=== PATIENT | female | born 1960 | race Native Hawaiian/Other Pacific Islander ===

== ENCOUNTER 2016-10-27 11:39 | Emergency (ER) | payer OTHER ==
[~2016-10-27] VITALS: Ht 152.4 cm; Wt 61.7 kg
[2016-10-27 11:39] VITALS: BP 128/68
--- NOTE | 2016-10-27 12:16 | NUR ---
PT IS MEDICATED ORDERED. AMBULATORY W/ STEADY GAIT. D/C IN STABLE CONDITION.
== END 2016-10-27 12:19 | disposition home or self-care (01) ==
LOC: ER 11:40
DX: M25.559 Pain in unspecified hip (principal); G89.29 Other chronic pain; B19.20 Unspecified viral hepatitis C without hepatic coma; Z88.8 Allergy status to other drugs, medicaments and biological substances; Z59.0 Homelessness
CPT/HCPCS: 99283; A4606; Z7610

== ENCOUNTER 2016-11-01 20:14 | Emergency (ER) | payer OTHER ==
[~2016-11-01] VITALS: Ht 165.1 cm; Wt 61.2 kg
[2016-11-01 20:14] VITALS: BP 133/78
== END 2016-11-01 20:35 | disposition home or self-care (01) ==
LOC: ER 20:16
DX: Z76.5 Malingerer [conscious simulation] (principal); B19.20 Unspecified viral hepatitis C without hepatic coma; F10.10 Alcohol abuse, uncomplicated; Z88.8 Allergy status to other drugs, medicaments and biological substances; Z59.0 Homelessness
CPT/HCPCS: 99283; A4606; Z7610

== ENCOUNTER 2017-02-24 17:52 | Emergency (ER) | payer OTHER ==
[~2017-02-24] VITALS: Ht 165.1 cm; Wt 68.0 kg
[2017-02-24] MEDS ORDERED: LORAZEPAM INJ 2 MG/ML VIAL ONE ×2 (18:12→18:35)
[2017-02-24 18:24] LABS: BASOPHILS # (AUTO) 0.1 /CMM (0.0-0.2); BASOPHILS % (AUTO) 0.8 % (0.0-2.0); EOSINOPHILS # (AUTO) 0.4 /CMM (0.0-0.7); EOSINOPHILS % (AUTO) 4.1 % (0.0-6.0); HEMATOCRIT 32 % (33-45); LYMPHOCYTES # (AUTO) 0.8 /CMM (0.8-4.8); LYMPHOCYTES % (AUTO) 8.9 % (20.0-44.0); MEAN CORPUSCULAR HEMOGLOBIN 22 PG (26.0-33.0); MEAN CORPUSCULAR HGB CONC 32 g/dl (31.0-36.0); MEAN CORPUSCULAR VOLUME 70 fL (82-100); MONOCYTES # (AUTO) 0.4 /CMM (0.1-1.30); MONOCYTES % (AUTO) 5.2 % (2.0-12.0); NEUTROPHILS # (AUTO) 6.9 /CMM (1.8-8.9); PLATELET COUNT (AUTO) 423 /CMM (150-450); RDW COEFFICIENT OF VARIATION 16.2 (11.5-15.0); RED BLOOD CELL COUNT(AUTO) 4.53 MIL/uL (4.0-5.2); WHITE BLOOD COUNT (AUTO) 8.6 K/uL (4.3-11.0)
[2017-02-24] MEDS ORDERED: diphenhydrAMINE HCL 50 MG/ML VIAL ONE (18:27)
[2017-02-24] MEDS ORDERED: diphenhydrAMINE HCL 50 MG/ML VIAL IV ONE (18:30)
[2017-02-24] MEDS ORDERED: LORAZEPAM INJ 2 MG/ML VIAL IVP ONE (18:30)
[2017-02-24] MEDS ORDERED: LORAZEPAM INJ 2 MG/ML VIAL IV ONE (18:30)
[2017-02-24 18:33] LABS: CALCIUM, SERUM 9.2 mg/dL (8.5-10.1); CARBON DIOXIDE 31 mmol/L (21-32); CHLORIDE 99 mmol/L (98-107); CREATININE 0.5 mg/dL (0.6-1.3); GLUCOSE 101 mg/dL (74-106); POTASSIUM 3.7 mmol/L (3.5-5.1); SODIUM SERUM 138 mmol/L (136-145); UREA NITROGEN, BLOOD 20 mg/dL (7-18)
--- NOTE | 2017-02-24 18:38 | NUR ---
second dose of Ativan given; the patient remains agitated- Zuly is aware
[2017-02-24 18:39] LABS: ALANINE AMINOTRANSFERASE 19 U/L (12-78); ALBUMIN 3.2 g/dL (3.4-5.0); ALCOHOL, BLOOD < 3 mg/dL (0-0); ALKALINE PHOSPHATASE 113 U/L (46-116); ASPARTATE AMINOTRANSFERASE 24 U/L (15-37); BILIRUBIN,DIRECT 0.1 mg/dL (0.0-0.2); BILIRUBIN,TOTAL 0.3 mg/dL (0.2-1.0); TOTAL PROTEIN, SERUM 8.3 g/dL (6.4-8.2)
[2017-02-24 18:40] LABS: ACETAMINOPHEN < 2 ug/ml (10-30); SALICYLATE 1.6 mg/dL (2.8-20.0)
--- NOTE | 2017-02-24 18:42 | NUR ---
placed on front desk monitor - 99% to 100% on room air
[2017-02-24] MEDS ORDERED: IV NS 0.9% 1,000 ML BAG IV ONE (19:00)
[2017-02-24] MEDS ORDERED: MIDAZOLAM HCL 2 MG/2ML VIAL IV ONE (19:00)
--- NOTE | 2017-02-24 19:00 | NUR ---
assumed care: pt in bed confused, combative, [address] for pt safety, breathing even/unlabored, distal sensation intact, cap refil instant, NAD noted, IV to L wrist intact, no phlebitis, waiting on labs/CT results.
[2017-02-24] MEDS ORDERED: MIDAZOLAM HCL 5 MG/5ML VIAL ONE (19:01)
--- NOTE | 2017-02-24 19:04 | NUR ---
VERBAL ORDER FOR VERSED TAKEN; HOWEVER, THE CT OF THE HEAD WAS DONE DESPITE BEING AGITATED- NO LONGER NEEDED - VERSED - WASTED - WITNESSED BY HUMPHREY GOMES
[2017-02-24 19:36] LABS: APPEARANCE,URINE Slightly Cloudy (CLEAR); BILIRUBIN,URINE Negative (NEGATIVE); BLOOD, URINE Negative Ery/uL (NEGATIVE); COLOR,URINE Light yellow (YELLOW); KETONES,URINE Negative (NEGATIVE); LEUKOCYTE ESTERASE ,URINE Negative (NEGATIVE); NITRITE, URINE Negative (NEGATIVE); PROTEIN,URINE 30 mg/dl (NEGATIVE); UGLUCOSE Negative (NEGATIVE); UROBILINOGEN,URINE 0.2 EU/dL (0.2)
[2017-02-24 19:47] LABS: BACTERIA,URINE Moderate /HPF (None Seen); RBC,URINE 0-2 /HPF (0-2); SQUAMOUS EPITHELIAL CELL,UR Many /HPF (None Seen); WBC,URINE 0-2 /HPF (0-3)
[2017-02-24] MEDS ORDERED: MIDAZOLAM 50 MG/10 ML VIAL ONE (20:43)
--- NOTE | 2017-02-24 21:00 | NUR ---
PT BREATHING LOUDLY/EVEN, MARY/ROM INTACT, CAP REFIL INSTANT, NAD NOTED, IV SITE INTACT, BRIGHT WITH 400CC OUTPUT YELLOW URINE, NAD NOTED, REASSESS NEED FOR RESTRAINT TO BE D/C
--- NOTE | 2017-02-24 22:55 | NUR ---
PT SLEEPING BREATHING LOUDLY, EVEN, NSY ON CARDIAC MONIOTR, NAD NOTED, CONTINUE TO MONITOR.
--- NOTE | 2017-02-25 00:23 | NUR ---
PT SLEEPING BREATHING LOUDLY, EVEN/UNLABORED, ELEVATED BP 161/110 ER MD CINTRON MADE AWARE, WILL CONTINUE TO MONITOR
[2017-02-25] MEDS ORDERED: LORAZEPAM INJ 2 MG/ML VIAL ONE ×2 (00:58→02:42)
[2017-02-25] MEDS ORDERED: LORAZEPAM INJ 2 MG/ML VIAL IV ONE (01:00)
--- NOTE | 2017-02-25 04:01 | NUR ---
PT SLEEPING, BREATHING LOUDLY/EVEN, ARROUSABLE TO VOICE, BABLES/MOANS INCOHERENTLY, BIOFUELS PRODUCTION MANAGER IN PLACE NSR, NAD NOTED, WILL CONTINUE TO MONITOR
[2017-02-25 07:30] VITALS: BP 142/88
--- NOTE | 2017-02-25 07:47 | NUR ---
AMBULATING IN THE HALLWAY WITH WALKER,STEADY GAIT. VERBALIZED UNDERSTANDING OF ACI.
== END 2017-02-25 08:17 | disposition home or self-care (01) ==
LOC: ER 17:57
DX: F19.129 Other psychoactive substance abuse with intoxication, unspecified (principal); R56.9 Unspecified convulsions; F10.10 Alcohol abuse, uncomplicated; B19.20 Unspecified viral hepatitis C without hepatic coma; Z59.0 Homelessness; Z88.8 Allergy status to other drugs, medicaments and biological substances
CPT/HCPCS: 36415; 70450; 80048; 80076; 80305; 80329; 81001; 82140; 85025; 87086; 96361; 96374; 96375; 96376; 99285; A4606; G0480 ×2; J1200; J2060 ×4; J2250; Z7610; 81000-TC

== ENCOUNTER 2017-04-20 07:30 | Inpatient (IN) | payer MEDICAID, OTHER ==
[~2017-04-20] VITALS: Ht 156.2 cm; Wt 58.7 kg
[2017-04-20 08:00] VITALS: BP 129/63
--- NOTE | 2017-04-20 09:15 | NUR ---
RN NOTES PT BROUGHT TO FLOOR BY FASHION DIRECTOR PART[employer] PLAN SALES FROM [place]. PT IS SLEEPING, BUT ABLE TO BE AROUSED TO NAME AND TOUCH. VITAL SIGNS ARE WNL AND TEL READING SHOWS SR. PT ON RA, RESPIRATIONS ARE EVEN AND UNLABORED. IV ON LFA, LAC, AND ALLISON INTACT AND SL. BRIGHT CATHETER IS INTACT AND DRAINING CLEAR YELLOW URINE. SAFETY MEASURES ARE IN PLACE, CALL LIGHT IS IN REACH. WILL CONTINUE TO MONITOR.
[2017-04-20 09:20] VITALS: BP 116/78
[2017-04-20] MEDS ORDERED: IV NS 0.9% 1,000 ML IV PRN (10:45)
[2017-04-20] MEDS ORDERED: PANTOPRAZOLE 40 MG VIAL IV SCH (11:00)
[2017-04-20] MEDS ORDERED: MAG HYDROX/AL HYDROX/SIMETH 30 ML UDC PO PRN (11:00)
[2017-04-20] MEDS ORDERED: ACETAMINOPHEN 325 MG TABLET PO PRN (11:00)
[2017-04-20] MEDS ORDERED: Z GUARD REMEDY 2 OZ OINT TP PRN (11:00)
[2017-04-20] MEDS ORDERED: ONDANSETRON HCL/PF 4 MG/2 ML VIAL IVP PRN (11:00)
[2017-04-20] MEDS ORDERED: ZOLPIDEM TARTRATE 5 MG TABLET PO PRN (11:00)
[2017-04-20] MEDS ORDERED: MAGNESIUM HYDROXIDE 30 ML UDC PO PRN (11:00)
[2017-04-20 13:11] LABS: HEMATOCRIT 26 % (33-45); HEMOGLOBIN 8.1 g/dL (11.5-14.8); MEAN CORPUSCULAR HEMOGLOBIN 21 PG (26.0-33.0); MEAN CORPUSCULAR HGB CONC 31 g/dl (31.0-36.0); MEAN CORPUSCULAR VOLUME 68 fL (82-100); PLATELET COUNT (AUTO) 211 /CMM (150-450); RDW COEFFICIENT OF VARIATION 19.5 (11.5-15.0); RED BLOOD CELL COUNT(AUTO) 3.89 MIL/uL (4.0-5.2); WHITE BLOOD COUNT (AUTO) 10.4 K/uL (4.3-11.0)
[2017-04-20 13:29] LABS: ALANINE AMINOTRANSFERASE 21 U/L (12-78); ALBUMIN 2.9 g/dL (3.4-5.0); ALKALINE PHOSPHATASE 91 U/L (46-116); ASPARTATE AMINOTRANSFERASE 22 U/L (15-37); BILIRUBIN,TOTAL 0.3 mg/dL (0.2-1.0); CALCIUM, SERUM 8.6 mg/dL (8.5-10.1); CARBON DIOXIDE 24 mmol/L (21-32); CHLORIDE 106 mmol/L (98-107); GLUCOSE 68 mg/dL (74-106); MAGNESIUM 1.6 mg/dL (1.8-2.4); PHOSPHORUS 3.2 mg/dL (2.5-4.9); POTASSIUM 4.4 mmol/L (3.5-5.1); SODIUM SERUM 139 mmol/L (136-145); TOTAL PROTEIN, SERUM 7.1 g/dL (6.4-8.2); UREA NITROGEN, BLOOD 32 mg/dL (7-18)
[2017-04-20 13:32] LABS: TROPONIN I < 0.017 ng/mL (0.00-0.056)
[2017-04-20 13:35] LABS: BAND % (MANUAL) 2 % (0.0-5.0); EOSINOPHILS % (MANUAL) 1 % (0-4); LYMPHOCYTES % (MANUAL) 9 % (16-48); MONOCYTES % (MANUAL) 2 % (0-11.0); NEUTROPHILS % (MANUAL) 86 (42-76)
[2017-04-20 13:38] LABS: THYROID STIMULATING HORMONE 1.078 uIU/mL (0.358-3.74)
--- NOTE | 2017-04-20 13:52 | NUR ---
RN NOTES PT LEFT AGAINST MEDICAL ADVICE. PT WAS TOLD TO IT IS BETTER FOR HER TO STAY TO GET ANTIBIOTICS AND FLUIDS BUT STATED SHE COULD GET THE ANTIBIOTICS FROM HER [facility] AND WANTS TO GO BACK. IVS AND ID BAND WERE REMOVED AND AMA FORM WAS SIGNED.
[2017-04-20] MEDS ORDERED: FEE PK DOSING 1 MIN EA MC ONE (14:21)
[2017-04-20] MEDS ORDERED: VANCOMYCIN 1 GM in IV NS 0.9% 250 ML IV SCH (14:30)
--- NOTE | 2017-04-20 15:47 | NUR ---
ELISEO Leon called TIFF in regards to receiving a bus token for the patient. TIFF provided bus token for the pt.
[2017-04-20 16:00] VITALS: BP 134/61
[2017-04-20] MEDS ORDERED: CEFEPIME 2 GM in IV D5W 100 ML IV SCH (16:00)
== END 2017-04-20 14:00 | disposition left against medical advice (07) | DRG 812 ==
LOC: TELE 09:08
PROVIDERS: ADMIT Internal Medicine; ATTEND Internal Medicine
DX: T42.4X1A Poisoning by benzodiazepines, accidental (unintentional), initial encounter (principal); J69.0 Pneumonitis due to inhalation of food and vomit; G92 Toxic encephalopathy; N17.9 Acute kidney failure, unspecified; F19.10 Other psychoactive substance abuse, uncomplicated; Y92.009 Unspecified place in unspecified non-institutional (private) residence as the place of occurrence of the external cause; K74.60 Unspecified cirrhosis of liver; N18.9 Chronic kidney disease, unspecified; R56.9 Unspecified convulsions
CPT/HCPCS: 36415; 80053-TC; 83735-TC; 84100-TC; 84443-TC; 84484-TC; 85025-TC; 87081-TC; C9113; J0692; J3370; J7030; J7050; J7060; Z7610

== ENCOUNTER 2017-05-08 14:37 | Emergency (ER) | payer MEDICAID, OTHER ==
[~2017-05-08] VITALS: Ht 162.6 cm; Wt 65.8 kg
[2017-05-08 14:37] VITALS: BP 138/68
== END 2017-05-08 22:32 | disposition home or self-care (01) ==
LOC: ER 14:38
DX: T40.601A Poisoning by unspecified narcotics, accidental (unintentional), initial encounter (principal); F11.10 Opioid abuse, uncomplicated; F19.129 Other psychoactive substance abuse with intoxication, unspecified; I10 Essential (primary) hypertension; F10.10 Alcohol abuse, uncomplicated; R56.9 Unspecified convulsions; Z59.0 Homelessness; Z86.19 Personal history of other infectious and parasitic diseases; Z88.8 Allergy status to other drugs, medicaments and biological substances; Y92.89 Other specified places as the place of occurrence of the external cause
CPT/HCPCS: 36415; 70450-TC; 82962-TC; A4606; G0480; Z7610

== ENCOUNTER 2017-11-01 12:04 | Inpatient (IN) | payer MEDICAID, OTHER ==
[~2017-11-01] VITALS: Ht 162.6 cm; Wt 65.8 kg
--- NOTE | 2017-11-01 12:30 | NUR ---
BROUGHT IN FOR PSYCH EVAL FOR GD BY [facility] STAFF. PATIENT TOOK METHADONE AND IS LETHARGIC. HYPOTENSIVE AT THIS TIME. BREATHING EVEN AND UNLABORED. NO SOB, NAD, VITALS STABLE. SAFETY AND COMFORT MEASURES IN PLACE. AWAITING MD ORDERS.
[2017-11-01] MEDS ORDERED: IV NS 0.9% 1,000 ML BAG IV ONE (13:00)
[2017-11-01] MEDS ORDERED: PANTOPRAZOLE 40 MG VIAL ONE (13:15)
--- NOTE | 2017-11-01 13:20 | NUR ---
NEW IV STARTED ON LEFT WRIST, 20G. MEDICATED PATIENT PER MD ORDERS.
[2017-11-01 13:25] LABS: BASOPHILS % (AUTO) 1.4 % (0.0-2.0); EOSINOPHILS % (AUTO) 2.6 % (0.0-6.0); HEMATOCRIT 33 % (33-45); HEMOGLOBIN 10.3 g/dL (11.5-14.8); LYMPHOCYTES % (AUTO) 15.2 % (20.0-44.0); MEAN CORPUSCULAR HEMOGLOBIN 21 PG (26.0-33.0); MEAN CORPUSCULAR HGB CONC 31 g/dl (31.0-36.0); MEAN CORPUSCULAR VOLUME 69 fL (82-100); MONOCYTES % (AUTO) 4.2 % (2.0-12.0); NEUTROPHILS % (AUTO) 76.6 % (43.0-81.0); RDW COEFFICIENT OF VARIATION 14.3 (11.5-15.0); RED BLOOD CELL COUNT(AUTO) 4.81 MIL/uL (4.0-5.2)
[2017-11-01 13:27] LABS: CALCIUM, SERUM 8.5 mg/dL (8.5-10.1); CARBON DIOXIDE 29 mmol/L (21-32); CHLORIDE 95 mmol/L (98-107); CREATININE 3.4 mg/dL (0.6-1.3); GLUCOSE 145 mg/dL (74-106); POTASSIUM 3.6 mmol/L (3.5-5.1); SODIUM SERUM 132 mmol/L (136-145); UREA NITROGEN, BLOOD 39 mg/dL (7-18)
[2017-11-01] MEDS ORDERED: PANTOPRAZOLE 40 MG VIAL IV ONE (13:30)
[2017-11-01 13:33] LABS: ACETAMINOPHEN 1 ug/ml (10-30); ALANINE AMINOTRANSFERASE 23 U/L (12-78); ALBUMIN 3.6 g/dL (3.4-5.0); ALCOHOL, BLOOD < 3 mg/dL (0-0); ALKALINE PHOSPHATASE 115 U/L (46-116); ASPARTATE AMINOTRANSFERASE 29 U/L (15-37); BILIRUBIN,DIRECT 0.1 mg/dL (0.0-0.2); BILIRUBIN,TOTAL 0.2 mg/dL (0.2-1.0); SALICYLATE 2.1 mg/dL (2.8-20.0); TOTAL PROTEIN, SERUM 8.2 g/dL (6.4-8.2)
[2017-11-01 13:36] LABS: APPEARANCE,URINE Clear (CLEAR); BILIRUBIN,URINE SMALL (NEGATIVE); BLOOD, URINE Negative Ery/uL (NEGATIVE); COLOR,URINE Yellow (YELLOW); KETONES,URINE Trace (NEGATIVE); LEUKOCYTE ESTERASE ,URINE Negative (NEGATIVE); NITRITE, URINE Negative (NEGATIVE); PH,URINE 5.5 (5.0-8.0); PROTEIN,URINE 100 mg/dl (NEGATIVE); UGLUCOSE Negative (NEGATIVE); UROBILINOGEN,URINE 0.2 EU/dL (0.2)
[2017-11-01 13:37] LABS: PLATELET COUNT (AUTO) 193 /CMM (150-450); WHITE BLOOD COUNT (AUTO) 6.6 K/uL (4.3-11.0)
[2017-11-01 13:41] LABS: BACTERIA,URINE Moderate /HPF (None Seen); RBC,URINE 0-2 /HPF (0-2); SQUAMOUS EPITHELIAL CELL,UR Moderate /HPF (None Seen)
--- NOTE | 2017-11-01 13:41 | NUR ---
JABIER FAMILY SUPERVISOR WET POUR: JULIO: [phone] / IMELDA [phone]
--- NOTE | 2017-11-01 13:51 | NUR ---
PANEL ON-CALL PAGED
[2017-11-01] MEDS ORDERED: IV NS 0.9% 500 ML BAG IV ONE (14:00)
[2017-11-01] MEDS ORDERED: CLON0.2T PO (14:03)
--- NOTE | 2017-11-01 14:04 | NUR ---
CALLED NURSING POWER ENGINEER AND REQUESTED A TELE BED FOR THIS PT.
[2017-11-01] MEDS ORDERED: LISI-603 PO (14:07)
[2017-11-01] MEDS ORDERED: BUSP30TA2 PO (14:07)
[2017-11-01] MEDS ORDERED: HYDR12.5 PO (14:07)
[2017-11-01] MEDS ORDERED: GABA600T2 PO (14:07)
[2017-11-01] MEDS ORDERED: CITA20TA16 PO (14:07)
[2017-11-01] MEDS ORDERED: AMLO10TA6 PO (14:07)
--- NOTE | 2017-11-01 14:55 | NUR ---
PT IS ASSIGNED TO [facility]#: [id number], DX: ACUTE RENAL FAILURE/AMS, AND ACCEPTING MD: DR MORRIS
--- NOTE | 2017-11-01 14:59 | NUR ---
report given to camron tomlinson for alin upon admission.
[2017-11-01 15:16] LABS: OCCULT BLOOD STOOL NEGATIVE (NEGATIVE)
[2017-11-01] MEDS ORDERED: IV NS 0.9% 1,000 ML IV PRN (15:19)
[2017-11-01] MEDS ORDERED: ACETAMINOPHEN 325 MG TABLET PO PRN (15:30)
[2017-11-01] MEDS ORDERED: MAGNESIUM HYDROXIDE 30 ML UDC PO PRN (15:30)
[2017-11-01] MEDS ORDERED: ZOLPIDEM TARTRATE 5 MG TABLET PO PRN (15:30)
[2017-11-01] MEDS ORDERED: HYDROCODONE/APAP 5/325MG 1 EACH TABLET PO PRN ×2 (15:30→21:30)
[2017-11-01] MEDS ORDERED: Z GUARD REMEDY 2 OZ OINT TP PRN (15:30)
[2017-11-01] MEDS ORDERED: MAG HYDROX/AL HYDROX/SIMETH 30 ML UDC PO PRN (15:30)
[2017-11-01] MEDS ORDERED: ONDANSETRON HCL/PF 4 MG/2 ML VIAL IVP PRN (15:30)
--- NOTE | 2017-11-01 15:53 | NUR ---
patient transported to [facility] via acls protocol. rncamron to provide alin.
--- NOTE | 2017-11-01 16:25 | NUR ---
MS RN RECEIVED A NEW ADMISSION FROM ER. 57 YEAR OLD FEMALE AWAKE,ALERT,ORIENTED X2, CONFUSED AT TIMES, NO DISTRESS NOTED, WILL MONITOR PATIENT'S CONDITION
--- NOTE | 2017-11-01 17:00 | NUR ---
ms rn received a new admission from er, a 57 year old female, came in w/ dx of altered mental status, acute renal failure, very lethargic and out of it. left wrist g20 noted , ledt lower foot wound laceration, bilateral lungs congested w/ occasional coughing noted, denies painat this time, will monitor patient's condition.
--- NOTE | 2017-11-01 18:00 | NUR ---
ms rn patient awake already, getting out of bed, bed alarm on,needs sitter, charge nurse aware, patient transferred to room 308 bde 1 for better monitoring, will check frequently.
--- NOTE | 2017-11-01 19:00 | NUR ---
RN NOTES PT AWAKE SITTING IN BED BUT DOZING OFF, SLURRED SPEECH. IV ACCESS ON THE LEFT WRIST 20G PATENT AND INTACT. CARDIAC MONITORING NOT ATTACHED, PT REFUSED AT THIS TIME. PATIENT IN ROOM AIR, NO SIGNS OF DISTRESS, NO LABORED BREATHING. BILATERAL KNEE SCAR, RIGHT LATERAL LEG SCAR, LEFT LEG DRY LACERATION, PIC TAKEN AND IN THE CHART. SAFETY MEASURES IN PLACED, CALL LIGHT WITHIN REACH. WILL CONTINUE TO MONITOR AND ASSESS
[2017-11-01 20:00] VITALS: BP 113/70
--- NOTE | 2017-11-01 20:00 | NUR ---
RN NOTES PT REFUSED TO BE CONNECTED TO HER IV FLUIDS. PT ALSO REFUSED CARDIAC MONITORING. PT IS STABLE AT THIS TIME, NO SIGNS OF DISTRESS. EDUCATED IMPORTANCE OF GETTING IV FLUIDS AND CARDIAC MONITORING, PT IN NEED OF REINFORCEMENT
[2017-11-01] MEDS ORDERED: LORAZEPAM INJ 2 MG/ML VIAL IV PRN (21:30)
--- NOTE | 2017-11-01 23:54 | NUR ---
RN NOTES MEDICATION BOTTLE AT BEDSIDE. INFORMED PATIENT THAT IT NEEDS TO BE SENT DOWN TO THE PHARMACY, BUT PATIENT REFUSED TO HAND IT OVER. INSTRUCTED PT TO NOT TAKE THE MEDICATION, VERBALIZED THAT SHE IS NOT GOING TO TAKE IT. EDUCATED IMPORTANCE OF NOT TAKING THE MEDICATION AND THAT THERE ARE MEDICATIONS ALREADY ORDERED FOR HER. WILL CONTINUE TO MONITOR PATIENT
--- NOTE | 2017-11-02 06:08 | NUR ---
RN CLOSING NOTES PT SLEEPING IN BED, COMFORTABLY. PATIENT IN ROOM AIR, NO SIGNS OF DISTRESS, NO LABORED BREATHING. IV ACCESS ON THE LEFT WRIST 20G PATENT AND INTACT. CARDIAC MONITORING NOT ATTACHED, PT REFUSED. NO FLUIDS RUNNING BECAUSE PATIENT REFUSED TO BE ATTACHED TO ANY IV FLUIDS. EDUCATED PATIENT ABOUT IMPORTANCE OF BEING ATTACHED TO A TIRE SERVICE TECHNICIAN AND FLUID REPLACEMENT BUT PT HAD POOR CONCENTRATION AND NOT MOTIVATED TO LISTEN. BILATERAL KNEE SCAR, RIGHT LATERAL LEG SCAR, LEFT LEG DRY LACERATION, PICS TAKEN AND ON THE CHART. SAFETY MEASURES IN PLACED, CALL LIGHT WITHIN REACH. WILL ENDORSE CONTINUITY OF CARE TO THE ONCOMING NURSE.
--- NOTE | 2017-11-02 07:48 | NUR ---
SHEET ROCK APPLIER OPENING NOTES RECEIVED PT FROM NIGHTSHIFT NURSE LYING ON THE SIDE OF HER BED. PT IS A/O X2. NO SOB OR ACUTE SIGNS OF DISTRESS NOTED. SHE DENIES PAIN AT THIS TIME. PT CURRENTLY REFUSING TELE MONITORING. IV TO LEFT WRIST 20G NOTED TO BE PATENT AND INTACT. NO REDNESS OR SIGNS OF INFILTRATION NOTED. PT'[S MEDICATIONS NOTED BY BEDSIDE. PER NIGHTSHIFT NURSE, PT IS REFUSING THAT WE TAKE THEM TO THE PHARMACY. ANOTHER ATTEMPT MADE TO RETRIEVE MEDICATIONS, HOWEVER PT REMAINS FIRM IN HER CONVICTION. PT INSTRUCTED THAT SHE CAN NOT TAKE ANY OF HER MEDICATIONS WHILE HERE AT THE HOSPITAL AND VERBALIZED FULL UNDERSTANDING. BED IN LOW LOCKED POSITION, SIDE RAILS UP X3, CALL LIGHT WITHIN REACH, BED ALARM ON. WILL CONTINUE TO MONITOR
[2017-11-02 08:25] VITALS: BP 118/75
[2017-11-02 09:26] LABS: HEMATOCRIT 30 % (33-45); HEMOGLOBIN 9.1 g/dL (11.5-14.8); MEAN CORPUSCULAR HEMOGLOBIN 21 PG (26.0-33.0); MEAN CORPUSCULAR HGB CONC 30 g/dl (31.0-36.0); MEAN CORPUSCULAR VOLUME 71 fL (82-100); PLATELET COUNT (AUTO) 246 /CMM (150-450); RDW COEFFICIENT OF VARIATION 15.8 (11.5-15.0); RED BLOOD CELL COUNT(AUTO) 4.28 MIL/uL (4.0-5.2)
[2017-11-02 09:43] LABS: ALBUMIN 3.2 g/dL (3.4-5.0); BILIRUBIN,TOTAL 0.2 mg/dL (0.2-1.0); CALCIUM, SERUM 8.3 mg/dL (8.5-10.1); CREATININE 1.7 mg/dL (0.6-1.3); MAGNESIUM 2.3 mg/dL (1.8-2.4); PHOSPHORUS 4.2 mg/dL (2.5-4.9); POTASSIUM 4.1 mmol/L (3.5-5.1); TOTAL PROTEIN, SERUM 7.7 g/dL (6.4-8.2)
[2017-11-02 09:49] LABS: THYROID STIMULATING HORMONE 1.426 uIU/mL (0.358-3.74)
--- NOTE | 2017-11-02 10:23 | NUR ---
Social service consult requested by Dr. Stone for drug abuse. Pt. is a 57 year old female who was admitted to [facility] for altered mental status and acute renal failure. SW attempted to meet with pt. for an assessment tried waking up pt., however pt. did not wake up. SW will come back again around noon to access pt when she is more alert.
[2017-11-02 12:04] LABS: EOSINOPHILS % (MANUAL) 1 % (0-4); LYMPHOCYTES % (MANUAL) 19 % (16-48); MONOCYTES % (MANUAL) 2 % (0-11.0); NEUTROPHILS % (MANUAL) 78 (42-76)
--- NOTE | 2017-11-02 14:15 | NUR ---
TIFF along with ELISEO Novak and pt's ELISEO Carvajal met with pt. bedside. Pt. is alert and oriented x 3. Pt. appears disheveled and has her suitcase bedside. Pt. resides at [facility] located at [address] [place] [address], in [place]. Pt's immigration case manager at [facility] is Kermit . SW speech is muffled and incoherent at times making it is difficult to understand. Pt. has a history of homelessness, psychiatric illnesses and drug use. ELISEO Novak informed pt. that per her insurance she needs to be transferred to [facility]. Pt. became agitated and began yelling and cursing stating, " I am not going there, you are lying to me." " they treated me like shit and laughed at me at [facility]." SW tried to explain to the pt. that she doesn't have a choice at this time. Pt. [facility] Kerm[facility]. TIFF informed pt. that she did and is waiting for a call back. SW received a call back from Kermit and Debbie who spoke to the pt. via phone informing her that she has no choice but to go to [facility] or she will lose her housing. Pt. became belligerent and verbally abusive to Debbie on the phone stating she is not going. manager operations Kaylan spoke to Debbie as well regarding pt's discharge plan. Pt's ELISEO Carvajal spoke to the pt. after the phone call and pt. agreed to go to [facility]. Ambulance was arranged by ELISEO Novak. Addendum: 11/02/17 at 1427 by FARRAH MATTHEW Correction: Pt's speech is muffled and incoherent at times making it is difficult to understand.
--- NOTE | 2017-11-02 15:46 | NUR ---
MS OFFICE ELECTRICIAN NOTES PT WAS TRANSFERRED TO [facility] IN STABLE CONDITION. REPORT CALLED AND GIVEN TO JHOAN TO ALFA RN. PT WAS BE ADMITTED TO ROOM 5540. ALL NEEDS WERE MET DURING SHIFT AND ORDERS CARRIED OUT ACCORDINGLY. ALL DUE MEDS GIVEN. RN MADE AWARE THAT PT WILL BE COMING WITH HER PERIPHERAL IV. IV PATENT AND INTACT PRIOR TO TRANSFER. ALL BELONGINGS VERIFIED AND ACCOUNTED FOR PRIOR TO D/C. INSTRUCTIONS AND DOCUMENTS REVIEWED WITH PT. ALL FORMS SIGNED BY PT AND COPIES WERE MADE AND PLACED IN PT'S CHART. SHE WAS SAFELY TRANSFERRED FROM [facility] TO [facility] AND LEFT VIA AMBULANCE TRANSPORT
== END 2017-11-02 15:30 | disposition short-term general hospital (02) | DRG 469 ==
LOC: ER 12:06 → TELE 15:09 → MED 11-02 08:54
PROVIDERS: ADMIT Internal Medicine; ATTEND Internal Medicine
DX: N17.0 Acute kidney failure with tubular necrosis (principal); G92 Toxic encephalopathy; E87.1 Hypo-osmolality and hyponatremia; M41.9 Scoliosis, unspecified; D50.9 Iron deficiency anemia, unspecified; D53.9 Nutritional anemia, unspecified; E86.1 Hypovolemia; F11.10 Opioid abuse, uncomplicated; K74.60 Unspecified cirrhosis of liver; I10 Essential (primary) hypertension; Z59.0 Homelessness; G40.909 Epilepsy, unspecified, not intractable, without status epilepticus; Z86.19 Personal history of other infectious and parasitic diseases; F32.9 Major depressive disorder, single episode, unspecified; F41.9 Anxiety disorder, unspecified; F15.10 Other stimulant abuse, uncomplicated
CPT/HCPCS: 36415; 71045-TC; 80048-TC; 80053-TC; 80061-TC; 80076-TC; 80305; 81000-TC; 82272-TC; 83735-TC; 84100-TC; 84443-TC; 85025-TC; 86850-TC; 87081-TC; 87086-TC; A4606; C9113; G0480; J2060; J7030; J7040; Z7610